=== PATIENT | female | born 1995 | race Caucasian/White ===

== ENCOUNTER → 2024-01-11 08:03 | Outpatient (CLI) | payer OTHER, SELFPAY ==
[2024-01-11 15:24] LABS: Urine N gonorrhoeae NOT DETECTED
[2024-01-11 16:53] LABS: Urine Chlamydia NOT DETECTED
== END ==
PROVIDERS: PCP Nurse Practitioner Family; Visit Provider Obstetrics & Gynecology
DX: Z34.00 Encounter for supervision of normal first pregnancy, unspecified trimester (principal)
CPT/HCPCS: 87491; 87591

== ENCOUNTER → 2024-01-11 08:33 | Outpatient (CLI) | payer OTHER, SELFPAY ==
[2024-01-11 09:52] LABS: Add Manual Diff / Slide Review NO; Basophils Absolute Auto 0 /uL (0-100); Eosinophils Absolute Auto 100 /uL (0-450); Eosinophils Percent Auto 1.8 % (2-4); Hematocrit 37.8 % (36-46); Hemoglobin 12.5 g/dL (12.0-16.0); Lymphocytes Absolute Auto 1100 /uL (1100-4500); Lymphocytes Percent Auto 22.4 % (25-40); Mean Corpuscular HGB Conc 33.2 % (30-36); Mean Corpuscular Hemoglobin 28.5 PG (26-34); Mean Corpuscular Volume 85.9 fL (80-100); Monocytes Absolute Auto 500 /uL (0-900); Monocytes Percent Auto 9.5 % (3-14); Neutrophils Absolute Auto 3300 /uL (1500-7000); Neutrophils Percent Auto 65.3 % (50-75); Platelet Count 304 X10^3/uL (150-400); Red Cell Distribution Width 13.4 % (11.6-14.8)
[2024-01-11 16:07] LABS: Hepatitis B Surface Antigen NEGATIVE s/c (NEGATIVE); Rubella Antibody IgG 85.7 IU/mL (>15)
[2024-01-11 16:20] LABS: HIV 1 & 2 Ab/Ag 4th Gen Combo NEGATIVE (NEGATIVE); Hep C Virus Ab w/Reflex Quant NEGATIVE s/c (NEGATIVE)
[2024-01-12 04:10] LABS: RPR Screen Non Reactive (Non Reactive)
[2024-01-12 13:36] LABS: Varicella IgG Antibody Reactive (Non Reactive)
== END ==
PROVIDERS: PCP Nurse Practitioner Family; Referring Provider Obstetrics & Gynecology; Visit Provider Obstetrics & Gynecology
DX: Z34.00 Encounter for supervision of normal first pregnancy, unspecified trimester (principal)
CPT/HCPCS: 36415; 80055; 86787; 86803; 86850; 86900; 86901; 87389; 87491; 87591

== ENCOUNTER → 2024-01-25 08:33 | Outpatient (CLI) | payer OTHER, SELFPAY ==
[2024-01-26 07:11] LABS: Toxoplasma IgG Interp Negative (.); Toxoplasma gohndii IgG <3.0 IU/mL (0.0-7.1)
[2024-01-30 11:10] LABS: Parvovirus B19 IgG 4.6 index (0.0-0.8); Parvovirus B19 IgM 0.3 index (0.0-0.8)
== END ==
PROVIDERS: PCP Nurse Practitioner Family; Referring Provider Obstetrics & Gynecology; Visit Provider Obstetrics & Gynecology
DX: Z34.01 Encounter for supervision of normal first pregnancy, first trimester (principal); Z3A.08 8 weeks gestation of pregnancy
CPT/HCPCS: 36415; 86644; 86747; 86777; 86778

== ENCOUNTER → 2024-03-23 09:45 | Outpatient (CLI) | payer OTHER, SELFPAY ==
[2024-03-23 10:49] LABS: Natera Collection Specimen Collected
== END ==
PROVIDERS: PCP Nurse Practitioner Family; Referring Provider Obstetrics & Gynecology; Visit Provider Obstetrics & Gynecology
DX: Z34.02 Encounter for supervision of normal first pregnancy, second trimester (principal); Z36.0 Encounter for antenatal screening for chromosomal anomalies
CPT/HCPCS: 36415; 82105; 87086

== ENCOUNTER → 2024-04-23 08:45 | Outpatient (CLI) | payer OTHER, SELFPAY ==
--- NOTE | 2024-04-23 08:47 | DI.US.S_ITS ---
PROCEDURE: US OB >= 14 WEEKS FETUS INDICATIONS: 20 week anatomy OUTSIDE/PRIOR DATING DATA: First dating scan (date and location): 01/25/2024. Estimated date of delivery (STEVE) from first dating scan: 09/03/2024. TECHNIQUE: Real-time scanning was performed of the fetus, with image documentation and biometric measurements. Endovaginal scanning: Not performed COMPARISON: None. FINDINGS: General: A single living intrauterine gestation is present. Presentation: Vertex. Placenta: Placental position is posterior , without previa. Small anterior succenturiate lobe is noted. Amniotic fluid index: 12.9 cm, normal range is 5-24 cm. Single deepest vertical pocket is 4 cm. heart rate: 137 beats per minute. Maternal cervical canal: 4.7 cm long. Normal lower limit is 2.5 cm. biometrics: Biparietal diameter: 5.0 cm, 21 weeks 0 days Head circumference: 18.4 cm, 20 weeks 5 days Abdominal circumference: 18.4 cm, 23 weeks 1 day Femur length: 3.4 cm, 20 weeks 5 days Clinically estimated gestational age: 21 weeks 0 days Composite gestational age from present scan: 21 weeks 3 days Estimated weight and percentile: 460 g, 89% Anatomic survey: Neuro: Ventricles are non-dilated at less than 10 mm. Cisterna magna is normal at 3-11 mm. Cerebellum is normal in size and morphology. Nuchal skin fold: Normal at less than 6 mm between 14-21 weeks gestational age. Face: Nose and lips, facial profile are normal. Spine: No evidence for spina bifida. Heart: 4-chambered heart is present, with normal ventricular outflow tracts. Diaphragm: Diaphragm is intact. Stomach: Left-sided stomach is present. Kidneys: No hydronephrosis. Normal is less than 5 mm in 2nd trimester, less than 7 mm in 3rd trimester. Cord: 3-vessel cord which insert 1.6 cm from the superior edge of the placenta. Bladder: Normal in size. Extremities: All 4 extremities identified. IMPRESSION: 1. Single live intrauterine consistent with 21 weeks and 3 days. 2. Normal anatomic survey. 3. Posterior placenta with small anterior succenturiate lobe. The placental cord inserts 1.6 cm from the superior edge of the placenta. 4. Abdominal circumference is in the 95th percentile. Estimated weight is in the 89th percentile. We strive to produce accurate, complete, and clear reports of imaging services. To assist us in improving patient care, this report was composed using standard report templates and voice recognition software. Therefore, it may contain abnormal punctuation, insertions and/or omissions. Occasional wrong-word or sound-alike substitutions may occur. Though we review the report and make efforts to correct it, we do recommend that the report be read carefully in proper context to recognize any text inaccuracies. Dictated by: Sourav Toledo M.D. on 04/23/2024 at 10:56 Approved by: Sourav Toledo M.D. on 04/23/2024 at 11:02
== END ==
PROVIDERS: PCP Nurse Practitioner Family; Referring Provider Obstetrics & Gynecology; Visit Provider Obstetrics & Gynecology
DX: Z34.02 Encounter for supervision of normal first pregnancy, second trimester (principal); Z3A.21 21 weeks gestation of pregnancy
CPT/HCPCS: 76811

== ENCOUNTER → 2024-05-31 08:23 | Outpatient (CLI) | payer OTHER, SELFPAY ==
[2024-05-31 10:06] LABS: Hematocrit 30.9 % (36-46); Hemoglobin 10.6 g/dL (12.0-16.0)
[2024-05-31 10:36] LABS: GTT (PREG) 1 Hour PP 50gm Dose 134 mg/dL (76-139)
== END ==
PROVIDERS: PCP Nurse Practitioner Family; Referring Provider Obstetrics & Gynecology; Visit Provider Obstetrics & Gynecology
DX: Z34.02 Encounter for supervision of normal first pregnancy, second trimester (principal); Z3A.26 26 weeks gestation of pregnancy
CPT/HCPCS: 36415; 82950; 85014; 85018

== ENCOUNTER → 2024-08-01 08:35 | Outpatient (CLI) | payer OTHER, SELFPAY ==
[2024-08-02 12:00] LABS: Strep Grp B PCR NEG for Grp B Strep
== END ==
PROVIDERS: PCP Nurse Practitioner Family; Visit Provider Obstetrics & Gynecology
DX: Z34.03 Encounter for supervision of normal first pregnancy, third trimester (principal); Z3A.35 35 weeks gestation of pregnancy; R30.0 Dysuria
CPT/HCPCS: 87086; 87653

== ENCOUNTER → 2024-08-18 11:17 | Outpatient (CLI) | payer OTHER, SELFPAY ==
[2024-08-18 12:24] LABS: Add Manual Diff / Slide Review NO; Basophils Absolute Auto 0 /uL (0-100); Basophils Percent Auto 0.5 % (0-2); Eosinophils Absolute Auto 100 /uL (0-450); Eosinophils Percent Auto 0.8 % (2-4); Hematocrit 30.7 % (36-46); Hemoglobin 10.6 g/dL (12.0-16.0); Lymphocytes Absolute Auto 1100 /uL (1100-4500); Lymphocytes Percent Auto 14.4 % (25-40); Mean Corpuscular HGB Conc 34.6 % (30-36); Mean Corpuscular Hemoglobin 28.7 PG (26-34); Mean Corpuscular Volume 82.8 fL (80-100); Monocytes Absolute Auto 300 /uL (0-900); Monocytes Percent Auto 4.2 % (3-14); Neutrophils Absolute Auto 6400 /uL (1500-7000); Neutrophils Percent Auto 80.1 % (50-75); Platelet Count 250 X10^3/uL (150-400); Red Blood Cell Count 3.71 X10^6/uL (4.0-5.2); Red Cell Distribution Width 13.8 % (11.6-14.8)
== END ==
PROVIDERS: PCP Nurse Practitioner Family; Referring Provider Obstetrics & Gynecology; Visit Provider Obstetrics & Gynecology
DX: Z34.03 Encounter for supervision of normal first pregnancy, third trimester (principal); Z3A.37 37 weeks gestation of pregnancy
CPT/HCPCS: 36415; 85025

== ENCOUNTER 2024-08-21 09:55 | Outpatient (CLI) | payer OTHER, SELFPAY ==
[2024-08-21 10:42] LABS: Add Manual Diff / Slide Review NO; Basophils Absolute Auto 0 /uL (0-100); Basophils Percent Auto 0.6 % (0-2); Eosinophils Absolute Auto 100 /uL (0-450); Eosinophils Percent Auto 0.7 % (2-4); Hematocrit 33.3 % (36-46); Hemoglobin 11.1 g/dL (12.0-16.0); Lymphocytes Absolute Auto 1100 /uL (1100-4500); Lymphocytes Percent Auto 13.5 % (25-40); Mean Corpuscular HGB Conc 33.4 % (30-36); Mean Corpuscular Volume 83.9 fL (80-100); Monocytes Absolute Auto 600 /uL (0-900); Monocytes Percent Auto 7.4 % (3-14); Neutrophils Absolute Auto 6300 /uL (1500-7000); Neutrophils Percent Auto 77.8 % (50-75); Platelet Count 256 X10^3/uL (150-400); Red Blood Cell Count 3.97 X10^6/uL (4.0-5.2)
[2024-08-21 10:51] LABS: Alanine Aminotransferase 12 IU/L (<35); Albumin 3.5 g/dL (3.5-5.0); Albumin Globulin Ratio 1.1 (1.0-2.8); Alkaline Phosphatase 248 U/L (38-126); Aspartate Aminotransferase 26 IU/L (14-36); Bilirubin Total 0.4 mg/dL (0.2-1.3); Blood Urea Nitrogen 6 mg/dL (7-17); Calcium 9.1 mg/dL (8.4-10.2); Carbon Dioxide 21 mmol/L (22-32); Chloride 106 mmol/L (98-107); Creatinine Urine Random 29.2 mg/dL; Estimated Glomerular Filt Rate > 60 mL/min (>60); Globulin 3.2 g/dL (1.7-4.1); Glucose 81 mg/dL (70-99); HEMOLYSIS < 15 (0-50); Potassium 3.8 mmol/L (3.4-5.1); Sodium 135 mmol/L (137-145); Total Protein 6.7 g/dL (6.3-8.2); Uric Acid 5.6 mg/dL (2.5-6.2)
--- NOTE | 2024-08-21 10:56 | P.TNLD_ITS ---
Visit Information Visit Information Date of evaluation: 08/21/24 Primary OB Provider: Rosa Vela On-call OB Provider: Fransisca Weller Reason for Evaluation: Yes non-stress test Comments/Additional reasons for admission: 29yo G1 at 38w1d, new isolated mild range diastolic BP in clinic - sent for NST with [facility] labs, serial BP monitoring Vital Signs Vital Signs: all maternal BP wnl [facility] Medical History (Updated 01/03/24 @ 16:43 by Tatiana Moore, RN) Tongue tie Wrist fracture Urinary reflux Surgical History (Updated 01/03/24 @ 15:59 by Tatiana Moore, RN) History of eye surgery [place] teeth extracted Status post ureteral reimplantation (~2000) Family History (Updated 01/03/24 @ 15:58 by Tatiana Moore, CORY) Father Hyperlipidemia Hypertension Skin cancer Grandfather Parkinson's disease S/P CABG x 4 Heart disease Grandmother Hypertension [place] Grandfather S/P CABG x 4 Heart disease Grandmother Dementia Uncle Pancreatic cancer Uncle Prostate cancer Aunt Cancer Social History marital status: number of children: 3 (stepchildren) household members: spouse and children lives independently: Yes caregiver/support person: Yes housing: house pets and animals: Yes (dogs) education level: master's degree (elementary education) 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) current occupational exposures/hazards: No special marian needs: No travel history: recent ([place], domestic) seatbelt use: always helmet use: Yes water heater temp set < 120 deg: Yes working smoke detector in home: Yes fire extinguisher in home: Yes carbon monox detector in home: Yes firearms in home: No do you feel safe at home: Yes second hand exposure: No alcohol intake: former (very rarely when not ) substance use type: marijuana (rarely, not while /) during the past year weight has: decreased > 10 lbs (intentional w/ diet and exercise) well-balanced diet: daily or most days daily servings fruits/ve-4 caffeine: Yes (single cup black tea in AM, diet coke in PM) Type(s) of exercise: bicycling and weight lifting Review of Systems Review of Systems ROS: Yes All systems reviewed with the patient and are negative except as otherwise documented Objective Labs 08/21/24 10:10 08/21/24 10:10 Labs: Laboratory Results - last 24 hr 08/21/24 10:10 WBC 8.0 RBC 3.97 L Hgb 11.1 L Hct 33.3 L MCV 83.9 MCH 28.0 MCHC 33.4 RDW 14.0 Plt Count 256 Neut % (Auto) 77.8 H Lymph % (Auto) 13.5 L Lanier % (Auto) 7.4 Eos % (Auto) 0.7 L Baso % (Auto) 0.6 Neut # (Auto) 6300 Lymph # (Auto) 1100 [place]ier # (Auto) 600 Eos # (Auto) 100 Baso # (Auto) 0 Sodium 135 L Potassium 3.8 Chloride 106 Carbon Dioxide 21 L BUN 6 L Creatinine 0.67 Estimated GFR > 60 BUN/Creatinine Ratio 9.0 Glucose 81 Uric Acid 5.6 Calcium 9.1 Total Bilirubin 0.4 AST 26 ALT 12 Alkaline Phosphatase 248 H Total Protein 6.7 Albumin 3.5 Globulin 3.2 Albumin/Globulin Ratio 1.1 Evaluation Evaluation Baseline heart rate: 140 Variability: Moderate (11-25) monitor accelerations: Present Monitor Decelerations: Absent Category of Tracing: Reactive Status: Category l Diagnosis, Plan/Disposition Plan/Disposition Plan: normal BP with serial monitoring PIH labs wnl with exception of isolated elevation in Pr/Cr (0.4) pt instructed to complete 24h urine protein, will bring to facility AM 6/5 with planned interval NST/repeat PIH labs at that time strict interval precautions OB Disposition: home
[2024-08-21 11:05] LABS: Protein (Total) Urine Random 12 mg/dL (0-12); Protein Creatinine Ratio Urine 0.41 GRAM/24H
== END 2024-08-21 11:40 | disposition home or self-care (01) ==
LOC: LABOR 10:51 → OB 17:20
PROVIDERS: PCP Nurse Practitioner Family; Referring Provider Obstetrics & Gynecology; Visit Provider Obstetrics & Gynecology
DX: O12.13 Gestational proteinuria, third trimester (principal); O26.893 Other specified pregnancy related conditions, third trimester; R03.0 Elevated blood-pressure reading, without diagnosis of hypertension; Z3A.38 38 weeks gestation of pregnancy
CPT/HCPCS: 36415; 59025; 80053; 82570; 84156; 84550; 85025; G0378; G0379

== ENCOUNTER 2024-08-23 08:09 | Inpatient (IN) | payer OTHER, SELFPAY ==
[2024-08-23 09:17] LABS: Add Manual Diff / Slide Review NO; Basophils Absolute Auto 0 /uL (0-100); Basophils Percent Auto 0.5 % (0-2); Eosinophils Absolute Auto 100 /uL (0-450); Eosinophils Percent Auto 1.2 % (2-4); Hemoglobin 10.4 g/dL (12.0-16.0); Lymphocytes Absolute Auto 1200 /uL (1100-4500); Lymphocytes Percent Auto 14.9 % (25-40); Mean Corpuscular HGB Conc 33.6 % (30-36); Mean Corpuscular Hemoglobin 28.1 PG (26-34); Mean Corpuscular Volume 83.7 fL (80-100); Monocytes Absolute Auto 500 /uL (0-900); Monocytes Percent Auto 6.6 % (3-14); Neutrophils Absolute Auto 6200 /uL (1500-7000); Neutrophils Percent Auto 76.8 % (50-75); Platelet Count 248 X10^3/uL (150-400); Red Cell Distribution Width 14.1 % (11.6-14.8); White Blood Cell Count 8.1 X10^3/uL (4.5-11.0)
[2024-08-23 09:30] LABS: Alanine Aminotransferase 14 IU/L (<35); Albumin 3.4 g/dL (3.5-5.0); Albumin Globulin Ratio 1.1 (1.0-2.8); Alkaline Phosphatase 236 U/L (38-126); Aspartate Aminotransferase 22 IU/L (14-36); BUN Creatinine Ratio 8.3 (6-22); Bilirubin Total 0.4 mg/dL (0.2-1.3); Blood Urea Nitrogen 5 mg/dL (7-17); Carbon Dioxide 17 mmol/L (22-32); Chloride 108 mmol/L (98-107); Estimated Glomerular Filt Rate > 60 mL/min (>60); Glucose 95 mg/dL (70-99); HEMOLYSIS < 15 (0-50); Potassium 3.8 mmol/L (3.4-5.1); Sodium 134 mmol/L (137-145); Total Protein 6.4 g/dL (6.3-8.2); Uric Acid 5.4 mg/dL (2.5-6.2)
--- NOTE | 2024-08-23 10:15 | PM.OBHP.IH.1 ---
OB HPI Date/Time Date of admission: 08/23/24 Date Patient Seen: 08/23/24 History of Present Condition Chief complaint: Preeclampsia without severe features STEVE Calculator Estimated Delivery Date Method Current WG Current Estimate 09/03/24 Ultrasound #1 38w 3d Other Estimates 08/23/24 LMP (Certain) 40w 0d Estimated Gestational Age (weeks): 38+3 : 1 Para: 0 care: good care Dating criteria OB: based on 1st trimester US only Ultrasounds: normal 1st trimester US and normal mid trimester US Obstetrical complications: preeclampsia Medical complications OB: none Indications Indication for induction OB: gestational HTN/pre-eclampsia Preadmission Labs Last OB Lab Results: Blood Type A Positive Today, 08:50 Antibody Screen Negative Today, 08:50 Hct, (36-46) 31.0 % L Today, 08:50 Hgb, (12.0-16.0) 10.4 g/dL L Today, 08:50 Hep Bs Antigen, (NEGATIVE) Negative s/c 01/11/24, 08:41 Hepatitis C Antibody, (NEGATIVE) Negative s/c 01/11/24, 08:41 Rubella Antibody, (>15) 85.7 IU/mL 01/11/24, 08:41 VZV IgG Antibody, (Non Reactive) Reactive 01/11/24, 08:41 Glucose 1 Hr 50 gm, (76-139) 134 mg/dL 05/31/24, 09:34 Group B Strep (PCR) Neg for grp b strep 08/01/24, 08:45 -: Chlamydia screen: negative, Gonorrhea screen: negative and Urine: unknown (24 hr. protein = 360 mg) -: PAP smear: Normal Genetic Screens: Quad screen: Normal External Labs -: Urine: unknown (24 hr. protein = 360 mg) Prior (ies) Hx # Term Pregnancies: 0 Evaluation Evaluation Baseline heart rate: 145 Variability: Moderate (11-25) monitor accelerations: Present Monitor Decelerations: Absent Category of Tracing: Reactive Status: Category l Dilation (cm): 0 Effacement (%): 50 Dilation: Closed Effacement: 40-50% station: -3 Position of cervix: posterior Consistency: firm Klein score: 1 Comments: RN Exam at time of Cervidil insertion COUNTS INCLUDE 234 BEDS AT THE [facility] Medical History (Updated 01/03/24 @ 16:43 by Tatiana Moore RN) Tongue tie Wrist fracture Urinary reflux Surgical History (Updated 01/03/24 @ 15:59 by Tatiana Moore RN) History of eye surgery [place] teeth extracted Status post ureteral reimplantation (~2000) Family History (Updated 01/03/24 @ 15:58 by Tatiana Moore, RN) Father Hyperlipidemia Hypertension Skin cancer Grandfather Parkinson's disease S/P CABG x 4 Heart disease Grandmother Hypertension [place] Grandfather S/P CABG x 4 Heart disease Grandmother Dementia Uncle Pancreatic cancer Uncle Prostate cancer Aunt Cancer Social History marital status: number of children: 3 (stepchildren) household members: spouse and children lives independently: Yes caregiver/support person: Yes housing: house pets and animals: Yes (dogs) education level: master's degree (elementary education) 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) current occupational exposures/hazards: No special marian needs: No travel history: recent ([place], domestic) seatbelt use: always helmet use: Yes water heater temp set < 120 deg: Yes working smoke detector in home: Yes fire extinguisher in home: Yes carbon monox detector in home: Yes firearms in home: No do you feel safe at home: Yes second hand exposure: No alcohol intake: former (very rarely when not ) substance use type: marijuana (rarely, not while /) during the past year weight has: decreased > 10 lbs (intentional w/ diet and exercise) well-balanced diet: daily or most days daily servings fruits/ve-4 caffeine: Yes (single cup black tea in AM, diet coke in PM) Type(s) of exercise: bicycling and weight lifting Meds Home Medications and Allergies Home Medications ?Medication ?Instructions ?Recorded ?Confirmed ?Type amitriptyline 10 mg tablet 10 mg PO BEDTIME 01/03/24 08/14/24 History ascorbic acid (vitamin C) 1,000 mg 1 g PO Q6H 01/03/24 08/14/24 History capsule lactobacillus comb no.10 20 20,000 mmu cells PO DAILY 01/03/24 08/14/24 History billion cell capsule (Probiotic) loratadine 10 mg tablet (Claritin) 10 mg PO DAILY 01/03/24 08/14/24 History magnesium glycinate 100 mg (as 400 mg PO DAILY 01/03/24 08/14/24 History glycinate) tablet vitamin-ferrous sulfate tab PO 01/03/24 08/14/24 History 27 mg iron-folic acid 0.8 mg tablet vitamin D3 250 mcg (10,000 1 cap PO .twice weekly 01/03/24 08/14/24 History unit)-vitamin K2 45 mcg capsule zinc 15 mg tablet 15 mg PO DAILY 01/03/24 08/14/24 History famotidine 20 mg tablet 20 mg PO BID #60 tabs 06/19/24 08/14/24 Rx ferrous gluconate 324 mg (38 mg 324 mg PO BID #60 tabs 06/19/24 08/14/24 Rx iron) tablet Allergies Allergy/AdvReac Type Severity Reaction Status Date / Time No Known Drug Allergies Allergy Unverified 08/14/24 08:08 OB Exam Vital signs Blood Pressure: 139/101 Pulse Rate: 100 Respiratory Rate: 18 Temperature: 97.0 F HENMT Head: normal to inspection, normocephalic and atraumatic Eyes General: appearance normal, both eyes and all related structures Resp Effort & Inspection: normal respiratory effort and able to speak in complete sentences Auscultation: clear to auscultation bilaterally Cardio Rate: regular rate Rhythm: regular rhythm Heart Sounds: S1 normal, S2 normal and no murmurs Extremities Lower extremity: Yes normal to inspection DTR's: Rt Patellar: 3+ and Lt Patellar: 3+ GI Inspection: normal to inspection Palpation: Yes soft and Yes no hepatosplenomegaly Uterus Location (Fundal Height): 37 Presentation: vertex Estimated Weight (lbs): 8 Objective Labs 08/23/24 08:50 08/23/24 08:50 Labs: Laboratory Results - last 24 hr 08/23/24 08:50 WBC 8.1 RBC 3.70 L Hgb 10.4 L Hct 31.0 L MCV 83.7 MCH 28.1 MCHC 33.6 RDW 14.1 Plt Count 248 Neut % (Auto) 76.8 H Lymph % (Auto) 14.9 L [place]ett % (Auto) 6.6 Eos % (Auto) 1.2 L Baso % (Auto) 0.5 Neut # (Auto) 6200 Lymph # (Auto) 1200 [place]ett # (Auto) 500 Eos # (Auto) 100 Baso # (Auto) 0 Sodium 134 L Potassium 3.8 Chloride 108 H Carbon Dioxide 17 L BUN 5 L Creatinine 0.60 Estimated GFR > 60 BUN/Creatinine Ratio 8.3 Glucose 95 Uric Acid 5.4 Calcium 9.0 Total Bilirubin 0.4 AST 22 ALT 14 Alkaline Phosphatase 236 H Total Protein 6.4 Albumin 3.4 L Globulin 3.0 Albumin/Globulin Ratio 1.1 Assessment and Plan Assessment and Plan Assessment and Plan narrative: ASSESSMENT 1. Intrauterine , 38+ 3 weeks gestational age 2. Preeclampsia without severe features 3. Anemia, mild, asymptomatic 4. GBS negative status PLAN 1. Admit for cervical ripening, induction, and delivery 2. See admission orders Time-Based Coding :: 30 minutes spent with patient and on the chart (including review of chart, obtaining history, exam, reviewing outside data, placing orders, documenting exam and treatment plan, and counseling patient) on 08/23/2024.
[2024-08-23 12:20] VITALS: BP 141/84
[2024-08-23 12:47] VITALS: BP 139/101; PULSE 100; RESP 18; TEMP 36.1
[2024-08-23] MEDS: DINOPROSTONE VAG (CERVIDIL) 10 MG VAG (13:22)
--- NOTE | 2024-08-23 18:10 | PM.OBPNLAB ---
Date/Time Date Patient Seen: 08/23/24 Time Patient Seen: 18:11 Pain Control Pain control: tolerating well Pelvic Exam Amniotic membrane status: Intact Comments: No cervical recheck Contractions Contractions on admission: irregular Monitor mode: External Contraction frequency (min): 4 Contraction duration (min): 1 Contraction pattern: Irregular Contraction phase: Resting Contraction intensity: Mild Status status: Category l Heart Rate Baseline: 135 Monitor Accelerations: Present Monitor Decelerations: Early and Episodic Monitor Variability: Moderate Assessment and Plan Assessment: other (Ripening ongoing) Plan: continuous present management Comments: Cervidil will be removed @ 0120, 08/24/2024. If cervical ripening sufficient, will initiate pitocin Repeat labs in AM
[2024-08-24] MEDS: OXYTOCIN PREMIX 30 UNIT/500 ML PLAST..BAG IV (03:54)
[2024-08-24 06:51] LABS: Add Manual Diff / Slide Review NO; Basophils Absolute Auto 100 /uL (0-100); Basophils Percent Auto 0.5 % (0-2); Eosinophils Absolute Auto 0 /uL (0-450); Eosinophils Percent Auto 0.2 % (2-4); Hematocrit 31.1 % (36-46); Hemoglobin 10.5 g/dL (12.0-16.0); Lymphocytes Absolute Auto 1200 /uL (1100-4500); Lymphocytes Percent Auto 11.5 % (25-40); Mean Corpuscular HGB Conc 33.8 % (30-36); Mean Corpuscular Hemoglobin 28.2 PG (26-34); Mean Corpuscular Volume 83.3 fL (80-100); Monocytes Absolute Auto 700 /uL (0-900); Monocytes Percent Auto 6.7 % (3-14); Neutrophils Absolute Auto 8400 /uL (1500-7000); Neutrophils Percent Auto 81.1 % (50-75); Platelet Count 257 X10^3/uL (150-400); Red Blood Cell Count 3.74 X10^6/uL (4.0-5.2); Red Cell Distribution Width 13.9 % (11.6-14.8); White Blood Cell Count 10.3 X10^3/uL (4.5-11.0)
[2024-08-24 07:08] LABS: Alanine Aminotransferase 12 IU/L (<35); Albumin 3.3 g/dL (3.5-5.0); Albumin Globulin Ratio 1.1 (1.0-2.8); Alkaline Phosphatase 235 U/L (38-126); Aspartate Aminotransferase 21 IU/L (14-36); BUN Creatinine Ratio 6.5 (6-22); Bilirubin Total 0.4 mg/dL (0.2-1.3); Blood Urea Nitrogen 4 mg/dL (7-17); Calcium 8.9 mg/dL (8.4-10.2); Carbon Dioxide 18 mmol/L (22-32); Chloride 109 mmol/L (98-107); Estimated Glomerular Filt Rate > 60 mL/min (>60); Globulin 3.1 g/dL (1.7-4.1); Glucose 84 mg/dL (70-99); HEMOLYSIS < 15 (0-50); Sodium 136 mmol/L (137-145); Total Protein 6.4 g/dL (6.3-8.2)
--- NOTE | 2024-08-24 09:16 | PM.OBPNLAB ---
Date/Time Date Patient Seen: 08/24/24 Time Patient Seen: 07:20 Pain Control Pain control: tolerating well and other (supportive measures ) Comments: cervidil removed overnight secondary to tachysystole, pitocin started; last SVE at 2200 /hi Pelvic Exam Dilation (cm): 3 Effacement (%): 50 station: -3 Amniotic membrane status: Intact Contractions Contractions on admission: none Monitor mode: External Pitocin rate (mU/min): 6 Contraction frequency (min): 4 Contraction pattern: Regular Contraction phase: Resting Contraction intensity: Mild Status status: Category l Heart Rate Baseline: 135 Monitor Accelerations: Present Monitor Decelerations: Absent Monitor Variability: Moderate Assessment and Plan Assessment: induction ongoing Comments: 29yo G1 at 38w4d, HD2 IOL for preE without severe features at term IOL s/p cervidil, removed early secondary to tachysystole uterine ctx IV pitocin started at 0500, continue upwards titration per protocol plan interval SVE 6h/sooner PRN CEFM/toco
[2024-08-24] MEDS: LACTATED RINGERS 1,000 ML 100 ML IV ×2 (12:34→17:54)
[2024-08-24] MEDS: CALCIUM CARBONATE 500 MG TAB 1000 MG PO ×2 (15:50→23:29)
--- NOTE | 2024-08-24 17:44 | PM.AN.REGBLK ---
Regional Block Pre-procedure PMH/ROS narrative: active labor pre e,no features PSH/Anesthesia history narrative: no past regional anesthesia ASA Class: III Labs: Hct 31.1 % (36-46) L 08/24/24 06:40 Plt Count 257 X10^3/uL (150-400) 08/24/24 06:40 Medications: Current Medications Generic Name Dose Route Start Last Admin Trade Name Freq PRN Reason Stop Dose Admin Calcium Carbonate 1,000 mg 08/24/24 17:03 Calcium Carbonate 500 Mg Tab PO Q4HR PRN Dyspepsia Carboprost Tromethamine 250 mcg 08/23/24 10:45 Carboprost 250 Mcg/Ml Ampul IM Q90M PRN Bleeding Fentanyl 50 mcg 08/23/24 22:03 Fentanyl 100 Mcg/2 Ml Inj IV Q2H PRN Pain, Severe (7-10) Oxytocin/Lactated Ringer's 30 unit in 500 mls @ 200 mls/hr 08/23/24 10:45 Oxytocin Premix IV CONT PRN Bleeding Protocol Tranexamic Acid 1,000 mg/ 100 mls @ 600 mls/hr 08/23/24 10:45 Sodium Chloride IV NOW PRN Bleeding Oxytocin/Lactated Ringer's 30 unit in 500 mls @ 2 mls/hr 08/23/24 23:37 08/24/24 03:54 Oxytocin Premix IV 2 milliunit/min TITRATE KAYE 2 mls/hr Protocol Administration 2 MILLIUNIT/MIN Lidocaine HCl 20 ml 08/23/24 10:45 Lidocaine 1% 20 Ml INJ INTRA-OP PRN Post Delivery Methylergonovine Maleate 0.2 mg 08/23/24 10:45 Methylergonovine 0.2 Mg Tablet PO Q6HR PRN Heavy Bleeding Methylergonovine Maleate 0.2 mg 08/23/24 10:45 Methylergonovine 0.2 Mg/Ml Vial IM NOW PRN Bleeding Mineral Oil 30 ml 08/23/24 10:45 Mineral Oil 30 Ml Udc TOP PRN PRN Version Misoprostol 800 mcg 08/23/24 10:45 Misoprostol 200 Mcg Tablet GA NOW PRN Bleeding Misoprostol 400 mcg 08/23/24 10:45 Misoprostol 200 Mcg Tablet SL NOW PRN Bleeding Naloxone HCl 0.2 mg 08/23/24 10:45 Naloxone 0.4 Mg/Ml Vial IV Q2MIN PRN Opiate Reversal Oxytocin 10 unit 08/23/24 10:45 Oxytocin 10 Unit/Ml Vial IM NOW PRN Bleeding Zolpidem Tartrate 5 mg 08/23/24 18:14 Zolpidem 5 Mg Tablet PO BEDTIME PRN Sleep Allergies: Allergies Allergy/AdvReac Type Severity Reaction Status Date / Time No Known Drug Allergies Allergy Unverified 08/14/24 08:08 --: pt drape and prep with sterile technique. v/s/s. l3 l4 interespace identified. lido 1% 3 cc skin wheel. tuohy through. UYEN achieved. DPE with 27 g pencil point needle. csf +. epidural catheter threaded until 12 cm. heme - csf - no paresthesias. Procedure Insertion date: 08/24/24 Insertion time: 17:25 Prep/Local: betadine x3 (chlorhexadine) and 1% lidocaine (3 cc) Interspace: l3 l4 Patient position: sitting Needle: 18 gauge Hustead Loss of resistance with: saline UYEN at (cm): 5 Catheter placed at SKIN (cm): 12 Sensory level: t10 Initial Medications TEST DOSE time: 17:26 TEST DOSE: 1.5% lidocaine with epinephrine 1:200k (mL): 3 BOLUS DOSE time: 17:35 BOLUS DOSE (mL): 5 BOLUS DOSE med: other (infusate) Infusion INFUSION: 0.125% bupivacaine and with fentanyl 2 mcg/mL Initial rate (mL/hr): 8 Subsequent interventions: 0310 c/o lower abdominal cramping. 9/10 pain. gave fentanyl 100 mcg with 4 cc 0.25% bupivacaine. increased rate to 10 ml/hr. 0333 cramp pain improved to 5/10. some R > L cramping pain. gave 3 cc 0.25% bupivacaine bolus. Post-procedure Anesthesia date START: 08/24/24 Anesthesia time START: 17:16 Anesthesia date END: 08/25/24 Anesthesia time END: 10:46
[2024-08-24] MEDS: ONDANSETRON 4 MG/2 ML INJ IV (18:31)
--- NOTE | 2024-08-24 22:36 | PM.OBPNLAB ---
Date/Time Date Patient Seen: 08/24/24 Time Patient Seen: 22:36 Pain Control Pain control: tolerating well and epidural Comments: pt resting comfortably with epidural, cat 1 tracing Pelvic Exam Dilation (cm): 4.5 Effacement (%): 50 station: -3 Amniotic membrane status: Ruptured (AROM clear fluid ) Contractions Contractions on admission: none Monitor mode: External Pitocin rate (mU/min): 20 Contraction frequency (min): 4 Contraction pattern: Regular Contraction phase: Resting Contraction intensity: Mild Status status: Category l Heart Rate Baseline: 150 Monitor Accelerations: Present Monitor Decelerations: Absent Monitor Variability: Moderate Comments: cat 1 Assessment and Plan Assessment: induction ongoing Plan: continuous present management Comments: Interval SVE at 1600 with interval change from 2-3cm to 3-4cm but no further change in effacement, pitocin at 20 since 1300 Interval SVE now with additional cervical dilation to 4-5cm, effacement now 70%, station remains high but vertex well applied --> AROM clear fluid, IUPC/FSE placed for titration of pitocin to adequacy pit break x1h, resume at 2u at 2300 cont CEFM, toco plan interval SVE 6h post adequacy
[2024-08-25] MEDS: FENT 2MCG/ML BUPIV 0.125% EPI 200 MCG/100 ML PLAST..BAG 6 MCG EPIDURAL (02:35)
[2024-08-25] MEDS: LACTATED RINGERS 1,000 ML 100 ML IV ×2 (02:35→06:29)
--- NOTE | 2024-08-25 07:08 | PM.OBPNLAB ---
Date/Time Date Patient Seen: 08/25/24 Time Patient Seen: 07:08 Pain Control Pain control: tolerating well and epidural Comments: pt resting comfortably, states increased sensation of rectal pressure but not constant. Adequate analgesia with epidural, did require re-dosing overnight secondary to lateral sensation. Intermittent difficulty with IUPC per RN, MVU between 180-250MVU Pelvic Exam Dilation (cm): 10 Effacement (%): 100 station: +2 Amniotic membrane status: Ruptured (AROM clear fluid ) Contractions Contractions on admission: regular Monitor mode: External Pitocin rate (mU/min): 23 Contraction frequency (min): 4 Contraction pattern: Regular Contraction phase: Resting Contraction intensity: Moderate Status status: Category l Heart Rate Baseline: 145 Monitor Accelerations: Present Monitor Decelerations: Early (intermittent) Monitor Variability: Moderate Assessment and Plan Assessment: active labor Plan: continuous present management Comments: 29yo G1 at 38w5d, HD3 admission for IOL secondary to preE without severe features at term C/C/+2, set up to push continue CEFM/toco maternal VSS/afebrile, no severe range BP anticipate
[2024-08-25] MEDS: CALCIUM CARBONATE 500 MG TAB 1000 MG PO (09:03)
--- NOTE | 2024-08-25 10:35 | PM.PROC.1 ---
Procedures Date/Time Date of procedure: 08/25/24 Time of procedure: 10:36 General Procedure description: CNM called to room after sales and in home delivery specialist of viable baby girl. in RN hands between patient's legs, assisted to maternal abdomen for drying and stimulation. Apgars 9/9. remaining 30 units of pitocin in 500mL LR ws increased to 333mL/hr for active management of the third stage. After cessation of pulsation, the cord was double clamped by CNM and cut by FOB. Gentle cord traction and a single maternal push led to spontaneous Schultze delivery of an apparently intatc placenta with succenturate lobe, membranes and 3VC. Fundus immediately firm with minimla bleeding and urine expressed with fundal massage. Straight catheterization performed for 100mL clear urine. Inspection revealed a short second degree perineal laceration and significant vulvar and perineal edema. Laceration was repaired with 3.0 Chromic in the usual fashion under adequate epidural anesthesia. QBL 200mL/hr. Both mother and baby stable and skin to skin and report given to before I left the room.
[2024-08-25] MEDS: ACETAMINOPHEN 325 MG TABLET 650 MG PO ×3 (11:33→23:54)
[2024-08-25] MEDS: DERMOPLAST SPRAY 20% 60 ML 1 SPRAY TOP (11:33)
[2024-08-25] MEDS: WITCH HAZEL/GLYCERIN PADS 1 EACH TOP (11:33)
[2024-08-25] MEDS: LANOLIN OINT 7 GM 1 APPLIC TOP (11:34)
[2024-08-25] MEDS: IBUPROFEN 600 MG TABLET PO ×3 (11:34→23:54)
[2024-08-26] MEDS: IBUPROFEN 600 MG TABLET PO ×2 (06:02→11:59)
[2024-08-26] MEDS: ACETAMINOPHEN 325 MG TABLET 650 MG PO ×2 (06:02→11:59)
--- NOTE | 2024-08-26 10:18 | P.DS_ITS ---
Discharge Providers Provider Date of admission: 08/23/24 08:09 Discharge Date: 08/26/24 Primary care physician: BRANDY Rosario Consults: 08/23/24 10:46 Consult to Anesthesiology Urgent Comment: Consulting Provider: Duane Bhagat Reason for consultation: Epidural 08/26/24 11:07 Consult to [employer] Routine Comment: Discharge provider: Lizett Sandoval MD Summary Hospital Course Date Patient Seen: 08/26/24 Time Patient Seen: 09:45 Diagnoses: Term , , pre-eclampsia without severe features Hospital Course: This is a 29 yo G1 now P1 who was brought in for induction for pre-eclampsia without severe features at 38w3d. Patient was induced with cervidil, pitocin, and AROM. complicated by nurse delivery with subsequent placenta delivery and lac repair by supervisor [employer] due to provider in operating room and unavailable. Patient did well . Blood pressures remained stable and normal. without difficulty. Bleeding like a period. Will follow up within first week for BP check with Dr. Vela. Peripartum Data Infant Delivery Method: Natural Vaginal Laceration Description: Perineal - 2nd Degree complications: none Status at Discharge Cognitive/behavioral status at discharge: oriented Functional status at discharge: independent ambulation Overall status at discharge: patient is back to baseline Time Spent with Patient Time attestation: Total time spent providing and/or coordinating discharge services: 35 minutes Time spent: Greater than 30 minutes Objective Labs 08/24/24 06:40 08/24/24 06:40 Labs: Laboratory Results - last 24 hr 08/23/24 08:57 U Random Total Protein TNP Urine Creatinine TNP Protein/Creatinin Ratio TNP Exam Narrative Exam Narrative: NAD, resting comfortably in bed Discharge Plan Discharge Plan Patient Disposition: Home Discharge orders & Medications Prescriptions: New acetaminophen 325 mg Tablet 650 mg PO Q6HR PRN (Reason: Pain, Mild (1-3)) Qty: 60 0RF ibuprofen 600 mg Tablet 600 mg PO Q6HR PRN (Reason: Pain, Mild (1-3)) Qty: 30 0RF Continued vit-ferrous sulfat-FA 27 mg iron- 0.8 mg tablet PO ascorbic acid (vitamin C) 1,000 mg capsule 1 g PO Q6H magnesium glycinate 100 mg tablet 400 mg PO DAILY vitamin D3-vitamin K2 250 mcg (10,000 unit)-45 mcg capsule 1 cap PO .twice weekly loratadine [Claritin] 10 mg tablet 10 mg PO DAILY zinc 15 mg tablet 15 mg PO DAILY Probiotic 20 billion cell capsule 20,000 mmu cells PO DAILY Rx Instructions: administer with a meal amitriptyline 10 mg tablet 10 mg PO BEDTIME famotidine 20 mg tablet 20 mg PO BID Qty: 60 3RF ferrous gluconate 324 mg (38 mg iron) tablet 324 mg PO BID Qty: 60 3RF Follow up/Referrals: Marylin Dobbs, [facility]NA[facility] [Primary Care Provider, Family Practice] Visit Report/Discharge Packet Stand Alone Forms: Patient Portal/API, Stroke Signs & Symptoms Discharge Data Primary Care Provider: Marylin Dobbs
[2024-08-26 10:56] VITALS: BP 127/84; PULSE 76; RESP 18; TEMP 36.3
== END 2024-08-26 12:10 | disposition home or self-care (01) | DRG 807 ==
PROVIDERS: Obstetrics & Gynecology; Admitting Provider Obstetrics & Gynecology; PCP Nurse Practitioner Family; Referring Provider Obstetrics & Gynecology; Visit Provider Obstetrics & Gynecology
DX: O14.04 Mild to moderate pre-eclampsia, complicating childbirth (principal); Z37.0 Single live birth; O76 Abnormality in fetal heart rate and rhythm complicating labor and delivery; O70.1 Second degree perineal laceration during delivery; Z3A.38 38 weeks gestation of pregnancy
CPT/HCPCS: 36415; 59050; 59200; 80053; 84156; 84550; 85025; 86850; 86900; 86901; G0379; J2405; J2590; J3010

== ENCOUNTER → 2024-08-23 08:14 | Outpatient (CLI) | payer OTHER, SELFPAY ==
[2024-08-23 09:41] LABS: Collection Time Urine 24 Hours; Protein (Total) Urine Random 12 mg/dL (0-12); Total Protein 24 Hour Urine 360 mg/day (42-225); Total Volume Urine 3000 mL
== END ==
PROVIDERS: Obstetrics & Gynecology; PCP Nurse Practitioner Family; Referring Provider Obstetrics & Gynecology; Visit Provider Obstetrics & Gynecology
DX: O13.9 Gestational [pregnancy-induced] hypertension without significant proteinuria, unspecified trimester (principal)
CPT/HCPCS: 84156